=== PATIENT | female | born 1970 | race Caucasian/White ===

== ENCOUNTER 2018-11-18 09:43 | Day surgery (SDC) | payer OTHER ==
[~2018-11-18] VITALS: Ht 170.2 cm; Wt 98.8 kg
[~2018-11-18 09:43] MED LIST: ATEN25 PO; CEPACOL SORE T1 EACH PO; Colace100 MG PO; IBUP800 PO; IRBE75 PO; METO25ER PO; OXYACE7.5T PO; PRAV20 PO; PROM25 PO; SIME80CH PO; Yaz 28 Tablet1 EACH PO
[2018-11-18] MEDS ORDERED: METO100 (11:10)
--- NOTE | 2018-11-18 11:17 | NUR ---
11/18/18 1117 VIKASH ODEN 1 IV ATTEMPT BY MEHDI VEIN BLEW 2 IV ATTEMPT BY RN SUCCESSFUL
== END 2018-11-18 12:23 | disposition home or self-care (01) ==
LOC: ORSCSDS 09:43
PROVIDERS: Internal Medicine Gastroenterology
PROC: 0DJ08ZZ Inspection of Upper Intestinal Tract, Via Natural or Artificial Opening Endoscopic (ICD-10-PCS; principal; 2018-11-18 11:15)
PROC: 0DBL8ZX Excision of Transverse Colon, Via Natural or Artificial Opening Endoscopic, Diagnostic (ICD-10-PCS; principal; 2018-11-18 11:15)
DX: Z12.11 Encounter for screening for malignant neoplasm of colon (principal); Z86.010 Personal history of colon polyps; D12.3 Benign neoplasm of transverse colon; K57.30 Diverticulosis of large intestine without perforation or abscess without bleeding; K64.1 Second degree hemorrhoids; K21.0 Gastro-esophageal reflux disease with esophagitis; I10 Essential (primary) hypertension; E78.00 Pure hypercholesterolemia, unspecified; F17.210 Nicotine dependence, cigarettes, uncomplicated; E66.01 Morbid (severe) obesity due to excess calories; Z68.35 Body mass index [BMI] 35.0-35.9, adult
CPT/HCPCS: 88305; J0461; J2405; J2704; J7120

== ENCOUNTER 2022-06-07 08:30 | Day surgery (SDC) | payer OTHER ==
[~2022-06-07] VITALS: Ht 170.2 cm; Wt 104.3 kg
[~2022-06-07 08:30] MED LIST changes: +METO100
[2022-06-07] MEDS ORDERED: CELE100 PO (09:08)
[2022-06-07] MEDS ORDERED: Adipex-P37.5 MG PO (09:08)
[2022-06-07] MEDS ORDERED: CLOBETASOL EMOL15 G1 (09:09)
[2022-06-07] MEDS ORDERED: ESOM20 PO (09:09)
[2022-06-07] MEDS ORDERED: HAIR, SKIN AND1 EAC3 PO (09:09)
[2022-06-07] MEDS ORDERED: RIZATRIPTAN10 MG SL (09:10)
[2022-06-07] MEDS ORDERED: SIMPONI AR50 MG/4 M1 IV (10:32)
--- NOTE | 2022-06-07 11:04 | NUR ---
06/07/22 1104 Kamlesh Bernal ROPIVACAINE 0.5% 30 MLS MIXED W/ EPI 0.15 ML (1MG/ML) PER ORDER TO MAKE ROPIVACAINE 0.5 % 1:200,000 FOR INJECTION AT OPSITE BY DR GREGORIO. 30 MLS INJECTED.
== END 2022-06-07 12:25 | disposition home or self-care (01) ==
LOC: ORSCSDS 08:30
PROVIDERS: Podiatrist Foot & Ankle Surgery
PROC: 0J8Q0ZZ Division of Right Foot Subcutaneous Tissue and Fascia, Open Approach (ICD-10-PCS; principal; 2022-06-07 10:00)
DX: M72.2 Plantar fascial fibromatosis (principal); R60.0 Localized edema; M25.674 Stiffness of right foot, not elsewhere classified; M77.31 Calcaneal spur, right foot; E78.5 Hyperlipidemia, unspecified; M06.9 Rheumatoid arthritis, unspecified; I10 Essential (primary) hypertension; K21.9 Gastro-esophageal reflux disease without esophagitis; F41.9 Anxiety disorder, unspecified; E66.9 Obesity, unspecified; Z68.36 Body mass index [BMI] 36.0-36.9, adult; F17.210 Nicotine dependence, cigarettes, uncomplicated; Z79.899 Other long term (current) drug therapy
CPT/HCPCS: A9270; J0171; J0690; J1100; J2250; J2405; J2704; J2795; J3010

== ENCOUNTER → 2022-08-28 | Outpatient (CLI) | payer OTHER ==
[~2022-08-28] MED LIST changes: +Adipex-P37.5 MG PO; +CELE100 PO; +CLOBETASOL EMOL15 G1; +ESOM20 PO; +HAIR, SKIN AND1 EAC3 PO; +RIZATRIPTAN10 MG SL; +SIMPONI AR50 MG/4 M1 IV
== END ==
LOC: LAB 11:34 → LAB SHORT 11:34 → PLD 11:34
DX: D48.5 Neoplasm of uncertain behavior of skin (principal)
CPT/HCPCS: 88305

== ENCOUNTER → 2024-09-17 | Outpatient (CLI) | payer OTHER | LOC: LAB 14:28 → LAB SHORT 14:28 | DX: R30.0 Dysuria (principal) | CPT/HCPCS: 87086 ==